=== PATIENT | female | born 1985 | race Caucasian/White ===

== ENCOUNTER → 2018-07-01 | Outpatient (CLI) | payer BC ==
--- NOTE | 2018-07-01 16:52 | Diagnostic Imaging Report ---
INDICATION: Lower right rib pain. COMPARISON: None. FINDINGS: Three views of the right ribs were obtained. There is no fracture, dislocation, or other acute bony abnormality identified. Visualized portions of the right lung are clear. The surrounding soft tissues appear unremarkable. No radiopaque foreign bodies are seen. IMPRESSION: No healing or displaced right rib fractures. Dictated by: Dictated on workstation # [id number]
== END ==
LOC: RAD 15:30
PROVIDERS: ATTEND Family Medicine
DX: R07.81 Pleurodynia (principal)
CPT/HCPCS: 71100

== ENCOUNTER → 2019-10-27 | Outpatient (CLI) | payer BC ==
--- NOTE | 2019-10-27 15:27 | Diagnostic Imaging Report ---
Ultrasound right breast limited. Indication: Right breast. There are no prior studies available for comparison. Reportedly the patient has pain near the junction of the right breast and the right upper quadrant. The ultrasound examinations in this area show no discrete solid or cystic mass. There is no evidence for an abscess either. Impression: There is no mass or acute abnormality to account for the patient's pain. Clinical followup is recommended. ACR BI-RADS Category 1: Negative. Result letter will be mailed to the patient. Note: At least 10% of breast cancer is not imaged by mammography. Dictated by: Dictated on workstation # [id number]
== END ==
LOC: RAD 14:01
PROVIDERS: ATTEND Obstetrics & Gynecology
DX: N60.01 Solitary cyst of right breast (principal); N64.4 Mastodynia; Z80.3 Family history of malignant neoplasm of breast
CPT/HCPCS: 76641

== ENCOUNTER → 2021-11-08 | Outpatient (CLI) | payer BC ==
--- NOTE | 2021-11-08 16:48 | Diagnostic Imaging Report ---
INDICATION: patient, survey. TECHNIQUE: Multiple real-time grayscale images were obtained over the gravid uterus. COMPARISON: No prior studies. FINDINGS: A single live intrauterine fetus is seen measuring 21 weeks 0 days by composite measurements. Sonographic EDC is 03/21/2022. The fetus is in variable presentation. Amniotic fluid is qualitatively normal. The placenta is posterior with no evidence of previa. heart rate is 149 BPM. survey showed normal-appearing bladder and stomach and four-chamber heart view. Normal-appearing cord insertion was seen. Three-vessel cord, spine, intracranial ventricles, and kidneys are not well seen due to position. There is no free fluid. There is a heterogeneous area in the lower uterine segment measuring 10.0 x 8.7 x 8.2 cm. This may represent a large fibroid lesion. Follow-up of this abnormality is recommended. Biometrical measurements are as follows: Biparietal 4.91 cm, age 20 weeks 6 days. Head circumference 17.78 cm, age 20 weeks 2 days. Abdominal circumference 16.06 cm, age 21 weeks 2 days. Femur length 3.64 cm, age 21 weeks 4 days. Sonographic estimate age: 21 weeks 0 days. Sonographic estimated date of delivery: 03/21/2022. Estimated Weight: 408 gm (+/- 60 gm). LMP percentile: 80%. heart rate: 149 beats per minute. number: 1 of 1. IMPRESSION: Single live intrauterine fetus measuring 21 weeks 0 days in size. survey was limited with several structures not well visualized as above, the visualized structures appeared unremarkable. There was a large 10.0 x 8.7 x 8.2 cm inhomogeneous mass in the uterus inferiorly, suspect a large fibroid lesion. Follow-up of this abnormality is recommended. Dictated by: Dictated on workstation # [id number]
== END ==
LOC: RAD 14:51
PROVIDERS: ATTEND Nurse Practitioner Women's Health
DX: Z34.02 Encounter for supervision of normal first pregnancy, second trimester (principal); Z3A.21 21 weeks gestation of pregnancy
CPT/HCPCS: 76805

== ENCOUNTER → 2021-11-20 | Outpatient (CLI) | payer BC ==
--- NOTE | 2021-11-20 14:46 | Diagnostic Imaging Report ---
INDICATION: Followup uterine fibroid and spine, heart, and brain anatomy as well as three-vessel cord. TECHNIQUE: Multiple Real-time grayscale images were obtained over the gravid uterus. COMPARISON: 11/08/2021. FINDINGS: There is a single fetus in transverse presentation with the head to the maternal right. heart rate was recorded at 152 BPM. The placenta is posterior. The amniotic fluid volume is normal. There is a large fibroid in the lower uterine segment measuring 10 cm x 8 cm. This does create some mass effect on the lower placenta, making evaluation for previa difficult. Once again, the spine and brain anatomy was limited due to position. The four-chamber heart and 3 vessel cord images are unremarkable. IMPRESSION: Limited obstetric ultrasound again demonstrating a large fibroid in the lower uterine segment producing some mass effect on the uterus. This does compromise evaluation for a previa. There continues to be suboptimal imaging of the brain and spine due to position. Dictated by: Dictated on workstation # [id number]
== END ==
LOC: RAD 13:00
PROVIDERS: ATTEND Obstetrics & Gynecology
DX: O34.10 Maternal care for benign tumor of corpus uteri, unspecified trimester (principal); Z3A.00 Weeks of gestation of pregnancy not specified
CPT/HCPCS: 76816

== ENCOUNTER → 2022-01-01 | Outpatient (CLI) | payer BC ==
--- NOTE | 2022-01-01 16:42 | Diagnostic Imaging Report ---
INDICATION: Follow-up anatomy not seen on prior ultrasound. Uterine fibroid. TECHNIQUE: Limited multiple real-time grayscale images were obtained over the gravid uterus. COMPARISON: 11/20/2021. FINDINGS: Limited imaging of the pelvis was performed for purposes of assessment of anatomy not seen on prior examination. On this examination, the cerebral ventricles, cisterna magna, and cerebellum are normal. The spine is grossly normal as well. Large heterogeneous echogenicity mass in the posterior lower uterus is again noted and measures approximately 9.0 x 7.3 x 7.0 cm. The amount of amniotic fluid appears visually appropriate. Fetus is in breech presentation. The cervix measures approximately 5 cm, and there are no features of previa. heart rate: 144-155 beats per minute. number: 1 of 1. IMPRESSION: 1. The intracranial structures are seen on today's examination are normal. 2. Unchanged large uterine fibroid causing mild mass effect on the placenta. Dictated by: Dictated on workstation # [id number]
== END ==
LOC: RAD 11:57
PROVIDERS: ATTEND Obstetrics & Gynecology
DX: O34.12 Maternal care for benign tumor of corpus uteri, second trimester (principal); Z3A.25 25 weeks gestation of pregnancy
CPT/HCPCS: 76816

== ENCOUNTER → 2022-02-07 | Outpatient (CLI) | payer BC ==
--- NOTE | 2022-02-07 17:08 | Diagnostic Imaging Report ---
INDICATION: Uterine fibroid. TECHNIQUE: Multiple real-time grayscale images were obtained over the gravid uterus. COMPARISON: 11/08/2021. FINDINGS: The cervix measures 4.3 cm in length. No placenta previa. Placenta is posteriorly positioned and there are no features of abruption. At the posterior aspect of the uterus, there is a heterogeneous mass measuring 8.9 x 7.3 x 6.9 cm which is most likely within the myometrium rather than the placenta. The appearance is unchanged since prior examination. The amount of amniotic fluid appears visually appropriate and the STANISLAV is 9.0 cm. Biometrical measurements are as follows: Biparietal 8.65 cm, age 35 weeks 0 days. Head circumference 31.65 cm, age 35 weeks 4 days. Abdominal circumference 29.50 cm, age 33 weeks 4 days. Femur length 6.67 cm, age 34 weeks 3 days. Sonographic estimate age: 34 weeks 5 days. Sonographic estimated date of delivery: 03/16/2022. Estimated Weight: 2343 gm (+/- 342 gm). LMP percentile: 58%. heart rate: 170 beats per minute. number: 1 of 1. IMPRESSION: 1. Stable large hypoechoic fibroid adjacent to the placental insertion. 2. No features of previa or placental abruption. Dictated by: Dictated on workstation # [id number]
== END ==
LOC: RAD 15:15
PROVIDERS: ATTEND Obstetrics & Gynecology
DX: O34.13 Maternal care for benign tumor of corpus uteri, third trimester (principal); Z3A.34 34 weeks gestation of pregnancy
CPT/HCPCS: 76805

== ENCOUNTER → 2022-03-13 | Outpatient (CLI) | payer BC ==
[~2022-03-13] VITALS: Ht 177.8 cm; Wt 129.5 kg
[~2022-03-13] MED LIST: NITR-65 PO
--- NOTE | 2022-03-13 14:21 | History & Physical ---
History and Physical Date Seen by Provider: Mar 19, 2022 This patient is a 37-year-old 1 at 39 weeks gestationWith breech presentation admitted now for primary delivery. Her has been uncomplicated otherwise. Her GBS culture was negative. She denies rupture of membranes or bleeding. Allergies are none Medications are vitamins Medical social and surgical history is are per the antepartum record HEENT exam is normal Neck is supple with no lymphadenopathy no thyromegaly Abdomen is gravid soft nontender nondistended Extremities show no clubbing cyanosis. There is no Homans' sign. Pelvic exam is deferred Assessment and plan 39-week gestation with breech presentation plan is for admission for primary delivery. Surgical risk complications recovery and follow-up have been fully discussed and all the patient's questions have been answered 39 weeks withBreech presentation Allergies and Home Medications Allergies Coded Allergies: No Known Drug Allergies (Unverified , 03/13/22) Patient Home Medication List Nitrofurantoin Monohyd/M-Cryst (Macrobid 100 mg Capsule) 100 Mg Capsule, 1 TAB PO DAILY, (Reported) Entered as Reported by: LEONARDO SUTTON on 03/13/22 1116 Last Action: New Order JEAN PAUL MARTE MD Mar 13, 2022 14:21
== END | disposition home or self-care (01) ==
LOC: PREOP 10:19
PROVIDERS: ATTEND Obstetrics & Gynecology
DX: Z01.818 Encounter for other preprocedural examination (principal)

== ENCOUNTER 2022-03-19 10:07 | Inpatient (IN) | payer BC ==
[2022-03-19] VITALS (8 sets, daily range): BP systolic 104–139; BP diastolic 62–90
[~2022-03-19] VITALS: Ht 176 cm; Wt 128.1 kg
--- NOTE | 2022-03-19 08:36 | History & Physical ---
History and Physical Date Seen by Provider: Mar 19, 2022 Time Seen by Provider: 12:00 This patient is a 37-year-old 1 white female currently at 39+ weeks gestation with known breech presentation. Her has been uncomplicated with her GBS culture after 35 weeks gestation was negative. Allergies are none Medications are vitamins Medical social and surgical history is all per the antepartum record HEENT exam is normal Neck is supple no lymphadenopathy no thyromegaly Abdomen is gravid soft nontender nondistended Extremities show no clubbing or cyanosis. There is no Homans' sign. Pelvic exam was deferred Assessment and plan 39+ weeks gestation with breech presentation plan is for admission for primary delivery. Surgical risk complications recovery and follow-up have been fully discussed patient is ready to proceed 39-week gestation with breech presentation Allergies and Home Medications Allergies Coded Allergies: No Known Drug Allergies (Unverified , 03/13/22) Patient Home Medication List Home Medication List Reviewed: Yes Nitrofurantoin Monohyd/M-Cryst (Macrobid 100 mg Capsule) 100 Mg Capsule, 1 TAB PO DAILY, (Reported) Entered as Reported by: LEONARDO SUTTON on 03/13/22 1116 Last Action: Reviewed JEAN PAUL MARTE MD Mar 19, 2022 08:36
[2022-03-19] MEDS ORDERED: ceFAZolin 2 GM IV Premixed 50 ML IV ONE (10:30)
[2022-03-19] MEDS ORDERED: metroNIDAZOLE 500MG/100ML IVPB 100 ML IV ONE (10:30)
[2022-03-19] MEDS ORDERED: D5 LR IV SOLUTION 1,000 ML IV SCH ×2 (10:30→13:00)
[2022-03-19] MEDS ORDERED: LACTATED RINGERS 1,000 ML IV ONE (11:17)
[2022-03-19] MEDS ORDERED: CITRIC ACID/SOB CIT (BICITRA) 30 ML UDC ONE (11:17)
[2022-03-19] MEDS ORDERED: FAMOTIDINE 20MG/2ML IV (PEPCID) ONE (11:17)
[2022-03-19] MEDS ORDERED: metroNIDAZOLE 500MG/100ML IVPB 100 ML ONE (11:17)
[2022-03-19] MEDS ORDERED: METOCLOPRAMIDE INJ 10 MG/2 ML (REGLAN) ONE (11:17)
[2022-03-19] MEDS ORDERED: ceFAZolin 2 GM IV Premixed 50 ML ONE (11:18)
[2022-03-19 11:23] LABS: BASOPHILS % (AUTO) 0 % (0-10); EOSINOPHILS % (AUTO) 0 % (0-10); HEMATOCRIT 42 % (35-52); HEMOGLOBIN 13.5 g/dL (11.5-16.0); LYMPHOCYTES % (AUTO) 15 % (12-44); MEAN CORPUSCULAR HEMOGLOBIN 27 pg (25-34); MEAN CORPUSCULAR HGB CONC 32 g/dL (32-36); MEAN CORPUSCULAR VOLUME 84 fL (80-99); MEAN PLATELET VOLUME 10.6 fL (9.0-12.2); MONOCYTES # (AUTO) 0.8 10^3/uL (0.0-1.0); MONOCYTES % (AUTO) 6 % (0-12); NEUTROPHILS # (AUTO) 10.3 10^3/uL (1.8-7.8); NEUTROPHILS % (AUTO) 78 % (42-75); PLATELET COUNT 203 10^3/uL (130-400); WHITE BLOOD COUNT 13.3 10^3/uL (4.3-11.0)
[2022-03-19] MEDS ORDERED: fentaNYL INJ 100 MCG/2 ML AMP ONE (11:36)
[2022-03-19] MEDS ORDERED: OXYTOCIN PRE-MIX DRIP 500 ML IV ONE (11:36)
[2022-03-19] MEDS ORDERED: ROPIVACAINE 5MG/ML 30ML VIAL ONE ×2 (11:39→12:31)
[2022-03-19] MEDS: KETOROLAC 30 MG/ML VIAL IVP SCH ×2 (12:30→18:30)
[2022-03-19] MEDS ORDERED: METOCLOPRAMIDE INJ 10 MG/2 ML (REGLAN) IV ONE (12:30)
[2022-03-19] MEDS ORDERED: CITRIC ACID/SOB CIT (BICITRA) 30 ML UDC PO ONE (12:30)
[2022-03-19] MEDS ORDERED: CATHETER FLUSH 10 ML SYR IV PRN (12:30)
[2022-03-19] MEDS ORDERED: LACTATED RINGERS 1,000 ML IV PRN ×2 (12:30)
[2022-03-19] MEDS ORDERED: FAMOTIDINE 20MG/2ML IV (PEPCID) IV ONE (12:30)
[2022-03-19] MEDS ORDERED: KETOROLAC 30 MG/ML VIAL ONE (12:31)
[2022-03-19] MEDS ORDERED: fentaNYL INJ 100 MCG/2 ML AMP IVP PRN (13:00)
[2022-03-19] MEDS ORDERED: ONDANSETRON 4 MG/2 ML (SDV) Z0FRAN IVP PRN ×2 (13:00→13:15)
[2022-03-19] MEDS ORDERED: HYDROmorphone 2 MG/ML VIAL (DILAUDID) IV ONE (13:15)
[2022-03-19] MEDS: OXYTOCIN PRE-MIX DRIP 500 ML IV SCH (14:36)
[2022-03-19] MEDS: oxyCODONE/APAP 10/325MG (PERCOCET 10) TABLET PO PRN ×2 (16:47→22:49)
--- NOTE | 2022-03-19 17:32 | OPERATIVE REPORT ---
DATE OF SERVICE: 03/19/2022 PREOPERATIVE DIAGNOSIS: Term at 39 weeks' gestation with leilani breech presentation. POSTOPERATIVE DIAGNOSIS: Term at 39 weeks' gestation with leilani breech presentation. OPERATIVE PROCEDURE: Primary low transverse delivery of a viable female with Apgars of 8 and 9 at 1 and 5 minutes respectively, weight of 7 pounds 6 ounces and cord blood pH that is pending. OPERATIVE DESCRIPTION: With the patient in supine position under satisfactory spinal anesthesia, she was repositioned in supine and then prepped and draped in the usual fashion for abdominal surgery. Shabazz catheter was placed in the urinary bladder. A Pfannenstiel incision was made through skin with scalpel, the patient's abdomen was entered in the usual manner. Bladder retractor placed into position and clean scalpel used to make a 4 cm hysterotomy incision transversely across the lower uterine segment that was extended by blunt dissection as well. A viable female was delivered via the uterine incision by breach extraction, first bringing the left leg down into the incision and then rotating the breech to back anterior and then delivering down to the shoulders. Then using the Dwaixaqqg-Knarngp-Jnla maneuver to deliver after coming head. The was bulb suctioned on delivery, the cord was doubly clamped and cut and passed to the pediatric nurse in attendance for delivery. Cord bloods were obtained. The placenta delivered spontaneously Harris. It was normal with a 3-vessel cord. The uterus was exteriorized and interior wiped clean with a wet laparotomy sponge. The incision was then closed with running locked suture of 2-0 Vicryl. The patient was found to have a large posterior lower uterine segment fibroid that was easily palpable. It was possibly 12 to 15 cm in diameter and in the right lower posterior portion of the uterus. The incision approximated the anterior portion of the fibroid. The interior of the uterus was wiped clean with wet laparotomy sponges. Uterine incision closed with running locked suture of 2-0 Vicryl. Hemostasis was complete. Good reapproximation was achieved. The uterus was returned to abdominal cavity. All blood clot and debris removed from the abdominal cavity. With sponge and needle counts correct, hemostasis assured. Anterior peritoneum was closed with running suture of 2-0 Vicryl. Rectus muscles were closed with that suture as well. The rectus fascia was closed with 2-0 Vicryl, subcutaneous tissue was closed with 2-0 Vicryl and the skin was stapled. Sponge and needle counts were correct on completion of the procedure. Blood loss was around 600 mL. The patient tolerated the procedure well and was transferred to recovery room in stable condition. The remained with mom and was doing well also. Job ID: [id number] DocumentID: [id number] Dictated Date: 03/19/2022 13:07:01 Regulatory Assistant Date: 03/19/2022 17:32:12 Dictated By: JEAN PAUL MARTE MD MTDD
[2022-03-19] MEDS ORDERED: OXYC1TAB12 PO (20:11)
[2022-03-19] MEDS ORDERED: DOCU100C37 PO (20:11)
[2022-03-19] MEDS ORDERED: IBUP-1780 PO (20:11)
--- NOTE | 2022-03-19 20:13 | Discharge Inst-Surgical ---
Discharge Inst-Surgical Depart Medication/Instructions New, Converted or Re-Newed RX: RX on Chart Consults/Follow Up Patient Instructions: As directed Orders & Referrals Follow Up Appt: RTC 1 week for incision check. Call to make follow up appt. for patient in 4 weeks. Wound Care: Remove ashley, apply benzoin and steri strips. Activity Per routine post instructions. . Diet as tolerated Patient may shower or tub bathe as desired. Continue home meds Activity Activity as Tolerated: Yes Diet Discharge Diet: No Restrictions JEAN PAUL MARTE MD Mar 19, 2022 20:13
[2022-03-19] MEDS ORDERED: DOCUSATE SODIUM 100 MG (COLACE) CAP PO SCH (21:00)
[2022-03-19] MEDS: DOCUSATE SODIUM 100 MG (COLACE) CAP PO SCH (22:48)
[2022-03-20] MEDS: IBUPROFEN 800 MG (MOTRIN) TAB PO SCH ×4 (01:36→18:54)
[2022-03-20] MEDS: OXYTOCIN PRE-MIX DRIP 500 ML IV SCH (01:53)
[2022-03-20 02:34] VITALS: BP 136/84
[2022-03-20] MEDS: oxyCODONE/APAP 10/325MG (PERCOCET 10) TABLET PO PRN (05:45)
[2022-03-20 05:47] VITALS: BP 122/86
[2022-03-20 08:00] VITALS: BP 133/76
--- NOTE | 2022-03-20 08:20 | Progress Note ---
Standard Progress Note Progress Notes/Assess & Plan Date Seen by a Provider: Mar 20, 2022 Time Seen by a Provider: 08:19 Progress/Assessment & Plan This patient is without complaint. She is ambulating, voiding, tolerating oral intake well and has good pain control. Vital Signs Date Time Temp Pulse Resp B/P (MAP) Pulse Ox O2 Delivery O2 Flow Rate FiO2 03/20/22 05:47 36.2 110 18 122/86 (98) 97 Room Air 03/20/22 02:34 36.6 111 18 136/84 (101) 99 Room Air 03/19/22 23:00 36.0 98 18 111/74 (86) 99 Room Air 03/19/22 16:45 36.5 102 18 139/74 (95) 99 Room Air 03/19/22 13:48 35.8 78 18 132/80 (97) 99 Room Air 03/19/22 13:48 Room Air 03/19/22 13:48 35.8 18 132/80 (97) 99 Room Air 03/19/22 13:38 Room Air 03/19/22 13:38 35.9 18 126/85 (99) 97 Room Air 03/19/22 13:25 36.1 18 110/64 (79) 99 Room Air 03/19/22 13:25 Room Air 03/19/22 13:03 Room Air 03/19/22 13:03 36.0 18 104/62 (76) 99 Room Air 03/19/22 12:50 36.1 18 104/69 (81) 99 Room Air 03/19/22 12:50 Room Air 03/19/22 10:49 36.3 104 18 138/90 (106) 97 Room Air I & O 03/20/22 07:00 Intake Total 1050 ml Output Total 1125 ml Balance -75 ml Vital signs are stable. Patient is afebrile. The abdomen is benign Extremities show no clubbing or cyanosis. There is no Homans' sign. Assessment and plan Postoperative day #1 status post primary delivery at 39 weeks gestation for breech presentation. Patient is doing well and will have routine convalescent care JEAN PAUL MARTE MD Mar 20, 2022 8:20 am
[2022-03-20] MEDS: DOCUSATE SODIUM 100 MG (COLACE) CAP PO SCH ×2 (08:51→22:20)
[2022-03-20] MEDS ORDERED: IBUPROFEN 800 MG (MOTRIN) TAB PO SCH (13:00)
[2022-03-20 13:27] VITALS: BP 120/80
--- NOTE | 2022-03-20 14:19 | Anesthesia-Regional Post-Op ---
Regional Patient Condition Mental Status: Alert, Oriented x3 Circulation: Same as Pre-Op Headache: Absent Sensation: Full Recovery Motor Block: Absent Post Op Complications Complications None Follow Up Care/Instructions Patient Instructions None needed. Anesthesia/Patient Condition Patient is doing well, no complaints, stable vital signs, no apparent adverse anesthesia problems. BRAYAN GA DO Mar 20, 2022 14:19
[2022-03-20 22:30] VITALS: BP 132/72
[2022-03-21 01:04] VITALS: BP 126/78
[2022-03-21] MEDS: IBUPROFEN 800 MG (MOTRIN) TAB PO SCH ×3 (01:04→13:00)
[2022-03-21 06:58] VITALS: BP 122/82
--- NOTE | 2022-03-21 08:46 | Progress Note ---
Standard Progress Note Progress Notes/Assess & Plan Date Seen by a Provider: Mar 21, 2022 Time Seen by a Provider: 08:44 Progress/Assessment & Plan This patient is without complaint. She is ambulating, voiding, tolerating oral intake well and has good pain control. Vital Signs Date Time Temp Pulse Resp B/P (MAP) Pulse Ox O2 Delivery O2 Flow Rate FiO2 03/20/22 05:47 36.2 110 18 122/86 (98) 97 Room Air 03/20/22 02:34 36.6 111 18 136/84 (101) 99 Room Air 03/19/22 23:00 36.0 98 18 111/74 (86) 99 Room Air 03/19/22 16:45 36.5 102 18 139/74 (95) 99 Room Air 03/19/22 13:48 35.8 78 18 132/80 (97) 99 Room Air 03/19/22 13:48 Room Air 03/19/22 13:48 35.8 18 132/80 (97) 99 Room Air 03/19/22 13:38 Room Air 03/19/22 13:38 35.9 18 126/85 (99) 97 Room Air 03/19/22 13:25 36.1 18 110/64 (79) 99 Room Air 03/19/22 13:25 Room Air 03/19/22 13:03 Room Air 03/19/22 13:03 36.0 18 104/62 (76) 99 Room Air 03/19/22 12:50 36.1 18 104/69 (81) 99 Room Air 03/19/22 12:50 Room Air 03/19/22 10:49 36.3 104 18 138/90 (106) 97 Room Air I & O 03/20/22 07:00 Intake Total 1050 ml Output Total 1125 ml Balance -75 ml Vital signs are stable. Patient is afebrile. The abdomen is benign Extremities show no clubbing or cyanosis. There is no Homans' sign. Assessment and plan Postoperative day #1 status post primary delivery at 39 weeks gestation for breech presentation. Patient is doing well and will have routine convalescent care March 21, 2022 Patient is without complaint. She is ambulating, voiding, tolerating oral intake well has good pain control. Patient is requesting discharge home. Vital Signs Date Time Temp Pulse Resp B/P (MAP) Pulse Ox O2 Delivery O2 Flow Rate FiO2 03/21/22 06:58 36.7 102 18 122/82 (95) 97 Room Air 03/21/22 01:04 36.7 98 18 126/78 (94) 99 Room Air 03/20/22 22:30 36.5 106 20 132/72 98 Room Air 03/20/22 22:30 36.5 106 20 132/72 (92) 98 Room Air 03/20/22 13:27 35.9 107 18 120/80 (93) 97 Room Air I & O 03/21/22 07:00 Intake Total 3 ml Balance 3 ml Vital signs are stable. Patient is afebrile. Physical exam is benign Assessment and plan Postoperative day #2 status post primary delivery at 39+ weeks gestation. Patient is doing well and will be discharged Final Diagnosis 39-week primary delivery JEAN PAUL MARTE MD Mar 21, 2022 8:46 am
[2022-03-21] MEDS: DOCUSATE SODIUM 100 MG (COLACE) CAP PO SCH (09:03)
[2022-03-21 13:06] VITALS: BP 123/82
== END 2022-03-21 17:30 | disposition home or self-care (01) | DRG 788 ==
LOC: LDRP 10:07
PROVIDERS: ADMIT Obstetrics & Gynecology; ATTEND Obstetrics & Gynecology
PROC: 10D00Z1 Extraction of Products of Conception, Low, Open Approach (ICD-10-PCS; principal; 2022-03-19 12:00)
DX: O64.1XX0 Obstructed labor due to breech presentation, not applicable or unspecified (principal); Z3A.39 39 weeks gestation of pregnancy; Z37.0 Single live birth
CPT/HCPCS: 36415; 83033; 85025; 86850; 86900; 86901; 94664

== ENCOUNTER → 2023-07-08 | Outpatient (CLI) | payer BC ==
[~2023-07-08] MED LIST changes: +DOCU100C37 PO; +IBUP-1780 PO; +OXYC1TAB12 PO
--- NOTE | 2023-07-08 17:13 | Diagnostic Imaging Report ---
PROCEDURE: US Non-ob pelvis comp/trans. TECHNIQUE: Multiple realtime grayscale images were obtained of the pelvis in various projections endovaginally. Transabdominal imaging was also performed. INDICATION: History of fibroid uterus. COMPARISON: None FINDINGS: The uterus is anteverted and measures 9.3 x 4.6 x 7.2 cm. Heterogeneous myometrial mass type structure is noted on the right and measures 5 x 4.7 x 5.5 cm and is favored to represent a fibroid. Endometrial stripe measures 6 mm. Visualized portions of the cervix are unremarkable. Left ovary is not well visualized due to position. Small benign follicle is noted on the right and measures 1.4 x 1.2 x 1.4 cm. Otherwise, right ovary has an unremarkable sonographic appearance as well. It measures 3.7 x 1.6 x 3 cm. No adnexal masses or free fluid are seen. IMPRESSION: 1. Fibroid uterus. Dictated by: Dictated on workstation # [id number]
== END ==
LOC: RAD 13:55
PROVIDERS: ATTEND Obstetrics & Gynecology
DX: N85.2 Hypertrophy of uterus (principal)
CPT/HCPCS: 76830; 76856